=== PATIENT | female | born 1965 | race Caucasian/White ===

== ENCOUNTER 2016-09-19 10:03 | Day surgery (SDC) | payer BC ==
[~2016-09-19 10:03] MED LIST: LIDOCAINE HCL 1% MPF SOL ONE; PROPOFOL 500 MG/50 ML EMU IV ONE
[2016-09-19 12:43] VITALS: BP 118/62; PULSE 60; RESP 18; TEMP 97.7; O2SAT 99
== END 2016-09-19 13:08 | disposition home or self-care (01) ==
LOC: SURG 10:03
PROVIDERS: ATTEND Surgery
DX: Z12.11 Encounter for screening for malignant neoplasm of colon (principal)
CPT/HCPCS: 45378; J2001; J2704